=== PATIENT | female | born 1980 | race Caucasian/White ===

== ENCOUNTER 2018-04-14 15:54 | Emergency (ER) | payer BC ==
[~2018-04-14] VITALS: Ht 160 cm; Wt 127.0 kg
[2018-04-14 18:42] VITALS: BP 183/96
== END 2018-04-14 19:53 | disposition home or self-care (01) ==
LOC: ER 15:54
DX: S63.501A Unspecified sprain of right wrist, initial encounter (principal); Z88.8 Allergy status to other drugs, medicaments and biological substances; W19.XXXA Unspecified fall, initial encounter; Y93.89 Activity, other specified; Y99.8 Other external cause status; Y92.096 Garden or yard of other non-institutional residence as the place of occurrence of the external cause
CPT/HCPCS: 73110